=== PATIENT | female | born 1980 | race Caucasian/White ===

== ENCOUNTER 2019-03-20 13:43 | Emergency (ER) | payer OTHER ==
[~2019-03-20] VITALS: Ht 162.6 cm; Wt 60.0 kg
[2019-03-20 14:12] VITALS: BP 118/80
== END 2019-03-20 15:17 | disposition left against medical advice (07) ==
LOC: ER 13:43
DX: Z53.21 Procedure and treatment not carried out due to patient leaving prior to being seen by health care provider (principal)

== ENCOUNTER 2019-03-20 16:13 | Emergency (ER) | payer OTHER ==
[~2019-03-20] VITALS: Ht 167.6 cm; Wt 46.0 kg
[2019-03-20 16:47] VITALS: BP 122/81
[2019-03-20] MEDS ORDERED: IBUPROFEN 400MG TABLET PO ONE (17:45)
== END 2019-03-20 21:04 | disposition home or self-care (01) ==
LOC: ER 16:13
DX: L02.415 Cutaneous abscess of right lower limb (principal); F15.10 Other stimulant abuse, uncomplicated; G43.909 Migraine, unspecified, not intractable, without status migrainosus; F12.10 Cannabis abuse, uncomplicated; Z86.14 Personal history of Methicillin resistant Staphylococcus aureus infection
CPT/HCPCS: 99282

== ENCOUNTER 2019-07-23 21:23 | Emergency (ER) | payer MEDICAID, OTHER ==
[~2019-07-23] VITALS: Ht 170.2 cm; Wt 65.0 kg
[2019-07-24 10:13] VITALS: BP 125/89
== END 2019-07-24 10:18 | disposition home or self-care (01) ==
LOC: ER 21:23
DX: B95.62 Methicillin resistant Staphylococcus aureus infection as the cause of diseases classified elsewhere (principal); L73.8 Other specified follicular disorders; F15.10 Other stimulant abuse, uncomplicated; E11.9 Type 2 diabetes mellitus without complications; G43.909 Migraine, unspecified, not intractable, without status migrainosus; Z98.890 Other specified postprocedural states
CPT/HCPCS: 99283